=== PATIENT | male | born 1930 | race Caucasian/White ===

== ENCOUNTER → 2016-08-31 | Outpatient (CLI) | payer OTHER | LOC: BHFA 11:30 | PROVIDERS: ATTEND Internal Medicine Cardiovascular Disease | DX: I50.9 Heart failure, unspecified (principal) ==

== ENCOUNTER → 2017-02-09 | Outpatient (CLI) | payer OTHER | LOC: BHFA 10:00 | PROVIDERS: ATTEND Internal Medicine Cardiovascular Disease | DX: I50.9 Heart failure, unspecified (principal) ==

== ENCOUNTER 2017-05-31 11:04 | Inpatient (IN) | payer OTHER ==
--- NOTE | 2017-05-31 12:31 | EDPHY ---
H & P Stated Complaint: fall yesterday morning hit face/pain r shoulder Time Seen by Provider: 05/31/17 11:48 HPI/ROS: CHIEF COMPLAINT: Fall HISTORY OF PRESENT ILLNESS: This patient is an anticoagulated (Coumadin) 86 year old male arriving with his daughter complaining of right shoulder pain and multiple bruises secondary to a mechanical fall yesterday morning. He was bending over to pear picker a newspaper in his driveway, and fell forwards, striking his head, hands, and knees on the ground. His right shoulder is his primary complaint, and he states the discomfort feels similar to a past rotator cuff tear. He denies headache. His neck feels stiff on the right. His left hand hurts and he feels it is weak but that this may be due to swelling. He complains of stiffness in his right knee. His last INR was about 1 month ago, and he had an appointment today but presents here for evaluation instead. He denies chest pain, abdominal pain, difficulty breathing, or other associated symptoms. REVIEW OF SYSTEMS: A 10 point review of systems was performed and is negative with the exception of the elements mentioned in the history of present illness. - Personal History Current Tetanus/Diphtheria Vaccine: No - Medical/Surgical History PMH: 1. Pulmonary Embolism, DVTs (Coumadin) 2. Hernia repair 3. Right rotator cuff repair 4. Submandibular tumor excision 5. Hypertension. 6. Fractured pelvis 7. Left carpal tunnel repair Hx Asthma: No Hx Chronic Respiratory Disease: Yes Hx Diabetes: No Hx Cardiac Disease: No Hx Renal Disease: No Hx Cirrhosis: No Hx Alcoholism: No Hx HIV/AIDS: No Hx Splenectomy or Spleen Trauma: No Other PMH: PE, STENT IN RT LEG, PMR, HERNIA, right rotator cuff repair, carpal tunnel repair left hand, submandibular tumor excession 2012,fracture pelvis, 2011, hypertension - Social History Smoking Status: Former smoker Additional Social History: Lives independently. Daughter at bedside. Former smoker. - Physical Exam Exam: General Appearance: Alert, no distress Head: Left forehead and periorbital ecchymosis and swelling Eyes: No conjunctival erythema, PERRLA, EOMI ENT, Mouth: No hemotympanum, no oral trauma, no bony tenderness Neck: Non-tender, full range of motion without pain Respiratory: No chest wall tenderness, lungs clear bilaterally Cardiovascular: Regular rate and rhythm Abdomen: Abdomen is soft and non tender Skin: No lacerations, no abrasions Back: No midline T/L/S tenderness Extremities: Pelvis is stable and nontender; left hand ecchymosis and swelling , abrasion to base of thumb, abrasions to bilateral knees, pain with range of motion of left shoulder. Neurological: A&Ox3, normal motor function, normal sensory exam, cranial nerves intact Psychiatric: Mood and affect normal Constitutional: Initial Vital Signs Temperature (C) 36.5 C 05/31/17 11:10 Heart Rate 72 05/31/17 11:10 Respiratory Rate 18 05/31/17 11:10 Blood Pressure 105/69 05/31/17 11:10 O2 Sat (%) 96 05/31/17 11:10 O2 Delivery Mode Nasal Cannula O2 (L/minute) 2 Allergies/Adverse Reactions: No Known Allergies Allergy (Verified 05/31/17 11:08) Home Medications: Medication Instructions Recorded Loratadine [Claritin 10 mg] 10 mg PO DAILY 10/18/12 Omeprazole [Prilosec 20 mg] 20 mg PO DAILY 10/18/12 Fluorouracil [Efudex] 1 mariluz TP DAILY 09/30/15 Alendronate Sodium [Fosamax 70 MG 70 mg PO MOY@0700 #30 tab 10/04/15 (*)] Allopurinol [Allopurinol 100 MG 100 mg PO DAILY #30 tab 10/04/15 (*)] Cholecalciferol (Vitamin D3) 1,000 unit PO DAILY #30 tablet 10/04/15 [Vitamin D3] Finasteride [Proscar 5 MG (*)] 5 mg PO DAILY #30 tab 10/04/15 Losartan Potassium [Cozaar 50 mg 100 mg PO DAILY #30 tab 10/04/15 (*)] Simvastatin 10 mg PO HS #30 tablet 10/04/15 Triamterene/Hydrochlorothiazid 1 each PO DAILY #30 tablet 10/04/15 [Triamterene-Hctz 37.5-25 mg Tb] predniSONE 2.5 mg PO DAILY #30 tablet 10/04/15 Carvedilol 05/31/17 Warfarin Sodium 05/31/17 Medical Decision Making - Diagnostics Imaging Results: Imaging Impressions Hand X-Ray 05/31/17 11:29 Impression: 1. No acute osseous findings. 2. Multifocal degenerative change, most severe at the first carpometacarpal joint. Shoulder X-Ray 05/31/17 11:29 Impression: No acute osseous findings. Head CT 05/31/17 12:41 Impression: 1. Stable moderate atrophy. 2. No hemorrhage, mass effect, or definite acute peripheral infarct. 3. Stable moderate nonspecific hypodensities in the white matter of bilateral cerebral hemispheres. Differential diagnosis includes microvascular ischemic disease, post-infectious/post-inflammatory sequela, atypical demyelinating disease, or migraine-related sequela. Small white matter lacunar infarcts may also have this appearance. 4. Healed left posterior parietal depressed skull fracture. 5. Soft tissue swelling/contusion over the left orbit. If symptoms worsen, additional imaging may be necessary. Findings discussed with Varsha Jaime M.D. at 13:45 hour, 05/31/2017. ED Course/Re-evaluation: This patient presents after a mechanical fall with multiple areas of ecchymosis. X-ray of the hand and right shoulder revealed no evidence of fracture. CT scan of the brain reveals no acute injuries. He lives alone in his own home. The patient will need to be admitted to the hospital because of ongoing weakness and new inability to use his right upper extremity to help him get up from a seated position. He and his daughter do not feel that he is safe going home today. Differential Diagnosis: Differential diagnosis includes though it is not limited to fracture, intracranial hemorrhage, pneumothorax, hemothorax, intra-abdominal hemorrhage. - Data Points Laboratory Results: Laboratory Results 05/31/17 13:45 05/31/17 13:45 05/31/17 05/31/17 05/31/17 13:45 13:45 13:45 WBC 8.15 10^3/uL 10^3/uL (3.80-9.50) RBC 4.26 10^6/uL L 10^6/uL (4.40-6.38) Hgb 14.2 g/dL g/dL (13.7-17.5) Hct 42.1 % % (40.0-51.0) MCV 98.8 fL fL (81.5-99.8) MCH 33.3 pg pg (27.9-34.1) MCHC 33.7 g/dL g/dL (32.4-36.7) RDW 14.6 % % (11.5-15.2) Plt Count 125 10^3/uL L 10^3/uL (150-400) MPV 11.3 fL fL (8.7-11.7) Neut % (Auto) 84.2 % H % (39.3-74.2) Lymph % (Auto) 8.7 % L % (15.0-45.0) [place] % (Auto) 6.5 % % (4.5-13.0) Eos % (Auto) 0.0 % L % (0.6-7.6) Baso % (Auto) 0.1 % L % (0.3-1.7) Nucleat RBC Rel Count 0.0 % % (0.0-0.2) Absolute Neuts (auto) 6.86 10^3/uL H 10^3/uL (1.70-6.50) Absolute Lymphs (auto) 0.71 10^3/uL L 10^3/uL (1.00-3.00) Absolute Monos (auto) 0.53 10^3/uL 10^3/uL (0.30-0.80) Absolute Eos (auto) 0.00 10^3/uL L 10^3/uL (0.03-0.40) Absolute Basos (auto) 0.01 10^3/uL L 10^3/uL (0.02-0.10) Absolute Nucleated RBC 0.00 10^3/uL 10^3/uL (0-0.01) Immature Gran % 0.5 % % (0.0-1.1) Immature Gran # 0.04 10^3/uL 10^3/uL (0.00-0.10) PT 24.3 SEC H SEC (12.0-15.0) INR 2.16 H (0.83-1.16) Sodium 141 mEq/L mEq/L (134-144) Potassium 4.5 mEq/L mEq/L (3.5-5.2) Chloride 107 mEq/L mEq/L (97-110) Carbon Dioxide 26 mEq/l mEq/l (22-31) Anion Gap 8 mEq/L mEq/L (8-16) BUN 39 mg/dL H mg/dL (7-23) Creatinine 1.4 mg/dL H mg/dL (0.7-1.3) Estimated GFR 48 Glucose 97 mg/dL mg/dL (70-100) Calcium 8.7 mg/dL mg/dL (8.5-10.4) Urine Color Urine Appearance Urine pH Ur Specific [place] Urine Protein Urine Ketones Urine Blood Urine Nitrate Urine Bilirubin Urine Urobilinogen Ur Leukocyte Esterase Urine Glucose 05/31/17 13:10 WBC RBC Hgb Hct MCV MCH MCHC RDW Plt Count MPV Neut % (Auto) Lymph % (Auto) [place] % (Auto) Eos % (Auto) Baso % (Auto) Nucleat RBC Rel Count Absolute Neuts (auto) Absolute Lymphs (auto) Absolute Monos (auto) Absolute Eos (auto) Absolute Basos (auto) Absolute Nucleated RBC Immature Gran % Immature Gran # PT INR Sodium Potassium Chloride Carbon Dioxide Anion Gap BUN Creatinine Estimated GFR Glucose Calcium Urine Color YELLOW Urine Appearance CLEAR Urine pH 7.0 (5.0-7.5) Ur Specific [place] 1.018 (1.002-1.030) Urine Protein NEGATIVE (NEGATIVE) Urine Ketones NEGATIVE (NEGATIVE) Urine Blood NEGATIVE (NEGATIVE) Urine Nitrate NEGATIVE (NEGATIVE) Urine Bilirubin NEGATIVE (NEGATIVE) Urine Urobilinogen 4.0 EU H EU (0.2-1.0) Ur Leukocyte Esterase NEGATIVE (NEGATIVE) Urine Glucose NEGATIVE (NEGATIVE) Departure - Departure Disposition: [facility] Inpatient Acute Clinical Impression: Multiple contusions, Generalized weakness Right shoulder strain Qualifiers: Encounter type: initial encounter Qualified Code(s): S46.911A - Strain of unspecified muscle, fascia and tendon at shoulder and upper arm level, right arm , initial encounter Condition: Fair Referrals: Galileo Damico MD [Primary Care Provider] - As per Instructions Report Scribed for: Varsha Jaime Report Scribed by: Preeti Lakhani Date of Report: 05/31/17 Time of Report: 12:31 Physician Review and Approval Statement: 05/31/17 12:31 Portions of this note were transcribed by a medical center manager. I personally performed a history, physical exam, medical decision making, and confirmed accuracy of information the transcribed note.
[2017-05-31 13:49] LABS: COLOR YELLOW; LEUKOCYTE ESTERASE,URINE NEGATIVE (NEGATIVE); NITRITE,URINE NEGATIVE (NEGATIVE)
[2017-05-31 13:55] LABS: % IMMATURE GRANULYOCYTES 0.5 % (0.0-1.1); ABSOLUTE IMMATURE GRANULOCYTES 0.04 10^3/uL (0.00-0.10); ADD DIFF? NO; ADD MORPH? NO; ADD SCAN? NO; ATYPICAL LYMPHOCYTE FLAG 0 (0-99); FRAGMENT RBC FLAG 0 (0-99); HEMATOCRIT 42.1 % (40.0-51.0); HEMOGLOBIN 14.2 g/dL (13.7-17.5); LEFT SHIFT FLG 0 (0-99); LIPEMIA HEMOLYSIS FLAG 80 (0-99); MEAN CELL HEMOGLOBIN 33.3 pg (27.9-34.1); MEAN CELL HEMOGLOBIN CONCENTR. 33.7 g/dL (32.4-36.7); MEAN CELL VOLUME 98.8 fL (81.5-99.8); MEAN PLATELET VOLUME 11.3 fL (8.7-11.7); PLATELET CLUMPS FLAG 0 (0-99); PLATELET COUNT 125 10^3/uL (150-400); RED BLOOD CELL COUNT 4.26 10^6/uL (4.40-6.38); RED CELL DISTRIBUTION WIDTH 14.6 % (11.5-15.2)
[2017-05-31 14:16] LABS: ANION GAP 8 mEq/L (8-16); CALCIUM 8.7 mg/dL (8.5-10.4); CARBON DIOXIDE 26 mEq/l (22-31); CHLORIDE 107 mEq/L (97-110); CREATININE 1.4 mg/dL (0.7-1.3); GLOMERULAR FILTRATION RATE 48; GLUCOSE 97 mg/dL (70-100); INR 2.16 (0.83-1.16); POTASSIUM 4.5 mEq/L (3.5-5.2); PROTIME(PATIENT) 24.3 SEC (12.0-15.0); SODIUM 141 mEq/L (134-144)
[2017-05-31] MEDS ORDERED: ONDANSETRON 4 MG/2 ML VIAL IVP PRN (15:06)
[2017-05-31] MEDS ORDERED: ONDANSETRON DISINTEGRATING 4 MG TAB PO PRN (15:06)
[2017-05-31] MEDS ORDERED: oxyCODONE IR 5 MG TAB PO PRN (15:06)
--- NOTE | 2017-05-31 15:43 | GHP ---
[f rep st] HISTORY AND PHYSICAL DATE OF ADMISSION: 05/31/2017 CHIEF COMPLAINT: Fall. HISTORY OF PRESENT ILLNESS: An 86-year-old man on Coumadin, presents with a fall. 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 He did not lose con sciousness. He did not have an episode of syncope. He says that he merely lost his balance. He com plains of pain in his left eye, left hand as well as right knee. He has difficulty fully bending his right knee. He also hurt his right shoulder. He has had rotator cuff surgery on that shoulder abou t 15 years ago and it feels to him like he re-injured his rotator cuff. PAST MEDICAL/SURGICAL HISTORY: 1. Systolic CHF. Initial EF 32% up to 55% this January. 2. Apical thrombus, on anticoagulation. 3. Chronic kidney disease. 4. History of DVT and PE in 2001 as well as 2010. 5. Peripheral artery disease status post femoral stent. 6. Polymyalgia rheumatica. 7. Hypertension. 8. Gout. 9. COPD and chronic respiratory failure on 3 L of oxygen at baseline. MEDICATIONS: Please see medication reconciliation. ALLERGIES: No known drug allergies. SOCIAL HISTORY: He quit both drinking and smoking. He lives by himself in a house. His daughter ac companies him and is present during my interview. FAMILY HISTORY: Parents are . REVIEW OF SYSTEMS: A 10-point review of systems is conducted and is negative except per HPI. PHYSICAL EXAM: VITAL SIGNS: Blood pressure 103/49, heart rate 60, respiration rate 20, saturating 9 6% on room air. Temperature is 36.6. GENERAL: Mr. Ny is a pleasant man who is resting comforta jenna in mild distress. HEENT: Shows him to have an ecchymosis over his right eye. EXTREMITIES: Jeana ws left hand to have some ecchymosis on it. His right bilateral knees have scabs. His right knee is mildly swollen. He has difficulty bending it. He has significant pain with any range of motion of his right shoulder. CARDIOVASCULAR: Shows regular rate and rhythm. No murmurs, rubs, or gallops. PULMONARY: Lungs clear to auscultation bilaterally. ABDOMEN: Soft, nontender, nondistended. SKIN: Shows no rash. : Shows no Yoon. NEUROLOGIC: Shows him to be alert and oriented x3. He is mo ving all extremities. PSYCHIATRIC: Shows normal mood and affect. LABS: CBC shows platelets of a 125. INR is 2.16. Creatinine is 1.4, BUN 39, urinalysis negative. DATA: 1. I discussed this with Dr. Jaime. 2. I reviewed his head CT scan. This shows nothing acute intracranial. He does have some swelling contusion over the left orbit. 3. Shoulder x-ray shows nothing acute. 4. Hand x-ray shows degenerative change. 5. I reviewed his old chart including Dr. Jones' clinic note. IMPRESSION/PLAN: An 86-year-old male with a fall and subsequent injuries that prevent him from going home. 1. Fall: This sounds quite mechanical. We will have him work with physical therapy/occupational th cassie. Would not work up other causes of fall at this point. 2. Inability to care for himself: He is unable to pull himself up from seated given his shoulder in jury. Unable to really bear too much weight on his right knee. Needs to be hospitalized for his saf ety as I do not feel like he would be safe to return home at this point. As above, we will have him work with physical therapy/occupational therapy. 3. Right shoulder injury: Certainly may be rotator cuff. I told him that we would do adaptive physical educator apy/occupational therapy on this for now. Could have him see Dr. Bagley, whose is primarily a shou er surgeon as an outpatient. 4. Right knee injury: He does have a small effusion. We will check an x-ray to rule out a fracture . Have him work with physical therapy/occupational therapy. 5. Systolic congestive heart failure. Initial EF was 32% up to 55% on therapy, follows with Dr. Gene peterson. We will continue his home medications, will need them reconciled. This appears compensated. 6. Apical thrombus: He does have apical hypokinesis on his echo. We will continue his anticoagulat ion uninterrupted. 7. History of deep venous thrombosis/pulmonary embolus: He is currently appropriately anticoagulate d on Coumadin, continue this. 8. Chronic obstructive pulmonary disease with chronic respiratory failure on 3 L of oxygen: At his b aseline. 9. Polymyalgia rheumatica: Prednisone. 10. Peripheral artery disease status post femoral stent. 11. Hypertension. 12. History of gout. CODE STATUS: He would like to be full code full tube. /[id number]/MODL
[2017-05-31] MEDS: ACETAMINOPHEN 500 MG TAB PO SCH ×2 (15:46→21:07)
[2017-05-31] MEDS ORDERED: ACETAMINOPHEN 650 MG/20.3 ML UDCUP ONE (15:47)
[2017-05-31] MEDS: WARFARIN SODIUM 2.5 MG TAB PO SCH (17:35)
[2017-05-31] MEDS: CARVEDILOL 25 MG TAB PO SCH (18:22)
[2017-05-31] MEDS ORDERED: TORSEMIDE 20 MG TAB PO SCH (21:00)
[2017-05-31] MEDS: ATORVASTATIN CALCIUM 10 MG TAB PO SCH (21:07)
[2017-05-31] MEDS ORDERED: NS 250 ML IV ONE ×2 (21:42→23:16)
[2017-06-01 05:26] LABS: % IMMATURE GRANULYOCYTES 0.6 % (0.0-1.1); ABSOLUTE IMMATURE GRANULOCYTES 0.04 10^3/uL (0.00-0.10); ADD DIFF? NO; ADD MORPH? NO; ADD SCAN? NO; ATYPICAL LYMPHOCYTE FLAG 0 (0-99); FRAGMENT RBC FLAG 0 (0-99); HEMATOCRIT 37.3 % (40.0-51.0); HEMOGLOBIN 11.9 g/dL (13.7-17.5); LEFT SHIFT FLG 0 (0-99); LIPEMIA HEMOLYSIS FLAG 80 (0-99); MEAN CELL HEMOGLOBIN 32.9 pg (27.9-34.1); MEAN CELL HEMOGLOBIN CONCENTR. 31.9 g/dL (32.4-36.7); MEAN PLATELET VOLUME 11.6 fL (8.7-11.7); PLATELET CLUMPS FLAG 10 (0-99); PLATELET COUNT 118 10^3/uL (150-400); RED BLOOD CELL COUNT 3.62 10^6/uL (4.40-6.38); RED CELL DISTRIBUTION WIDTH 14.6 % (11.5-15.2)
[2017-06-01 05:47] LABS: ANION GAP 8 mEq/L (8-16); CALCIUM 8.4 mg/dL (8.5-10.4); CARBON DIOXIDE 28 mEq/l (22-31); CHLORIDE 104 mEq/L (97-110); CREATININE 1.7 mg/dL (0.7-1.3); GLOMERULAR FILTRATION RATE 38; GLUCOSE 98 mg/dL (70-100); POTASSIUM 4.3 mEq/L (3.5-5.2); SODIUM 140 mEq/L (134-144)
[2017-06-01] MEDS: CARVEDILOL 25 MG TAB PO SCH ×2 (08:02→18:28)
[2017-06-01] MEDS: ACETAMINOPHEN 500 MG TAB PO SCH ×4 (09:54→20:59)
[2017-06-01] MEDS: ALLOPURINOL 100 MG TAB PO SCH (09:55)
[2017-06-01] MEDS: predniSONE 1 MG TAB PO SCH ×2 (09:55→10:02)
[2017-06-01] MEDS: LOSARTAN POTASSIUM 50 MG TAB PO SCH (09:55)
[2017-06-01] MEDS: CETIRIZINE 10 MG TAB PO SCH (09:55)
[2017-06-01] MEDS: predniSONE 5 MG TAB PO SCH (09:55)
[2017-06-01] MEDS: PANTOPRAZOLE SODIUM 40 MG TAB PO SCH (09:55)
--- NOTE | 2017-06-01 10:33 | HOSPPROG ---
Hospitalist Progress Note Assessment/Plan: First encounter with this patient 86 yo male with MMP, admitted after mechanical fall with multiple bruising and significant generalized weakness. W/u thus far has shown no acute injuries including negative CT Brain, Shoulder, Knee. He is a high risk patient as he is on chronic AC. Has a large left orbital bruising that will need to be monitored closely. Cont with PT/OT. May need rehab pending progression with PT/OT. Requesting meds be changed, will change Torsamide not morning and change prednisone to 5 mg daily. #Mechanical Fall #Generalized Weakness #Chronic AC for Apical Thrombus and Hx of DVT/PE #Left orbital bruising #Left knee Effusion #Right shoulder pain, Hx of rotator cuff injury. Sees Dr. Bagley as an outpatient #Hx of Systolic CHF. Not in Exacerbation. Sees Dr. Vences #PAD, s/p femoral stent #Chronic resp failure and COPD at baseline of 3 L #HTN-essential, well controlled with current meds #chronic renal failure, stage III, at baseline #Polymyalgia Rheumatica, on chronic prednisone Subjective: Still weak. Left orbital swelling is decreasing. No SOB. Objective: Vital Signs Temp Pulse Resp BP Pulse Ox 36.4 C 60 34 H 124/63 H 96 06/01/17 08:00 06/01/17 08:02 06/01/17 08:00 06/01/17 09:55 06/01/17 08:00 Laboratory Results 06/01/17 04:28 06/01/17 04:28 05/31/17 06/01/17 06/02/17 05:59 05:59 05:59 Intake Total 300 Output Total 300 250 Balance -300 50 PT 24.3 SEC (12.0-15.0) H 05/31/17 13:45 INR 2.16 (0.83-1.16) H 05/31/17 13:45 - Physical Exam Constitutional: chronically ill appearing Eyes: PERRL, EOMI, other (Large swelling and bruising around left orbit) Ears, Nose, Mouth, Throat: moist mucous membranes, No hearing normal Cardiovascular: regular rate and rhythym Respiratory: no respiratory distress, no rales or rhonchi, clear to auscultation Gastrointestinal: normoactive bowel sounds, soft, non-tender abdomen Skin: warm Musculoskeletal: generalized weakness Neurologic: AAOx3 Psychiatric: interacting appropriately, not anxious, not encephalopathic ICD10 Worksheet Patient Problems: Problems Problem Status Onset Generalized weakness Acute Multiple contusions Acute Right shoulder strain Acute Cortical hemorrhage Acute Elevated INR Acute Epistaxis Acute Fracture of parietal bone of skull Acute Laceration Acute
--- NOTE | 2017-06-01 10:35 | WOCRNPDOC ---
WOCRN Advanced Assessment Note - Skin Integrity Problem, Advanced Assess Bilateral Knee Scab Dressing Type: Allevyn Life (left knee), Open to Air (right knee ) Dressing Description: Clean/Dry, Intact Exudate Amount: None Integumentary Issue Intervention: Visualized Under Dressing Wound Bed Constitution: Unstable Eschar (evolving eschar/small hematoma) Site Measurement - Head-to-Toe Length X Width X Depth (cm): Left: 1x1.8x0, Right : 0.5x1.8x0 Skin Integrity Problem Comment: Likely etiology is skin tear mixed with small hematoma (on right). Left is just a skin tear that has necrosed as it dried out. Treat with hydrogel and allevyn. Wound care will sign off.
--- NOTE | 2017-06-01 11:11 | PDMN ---
Medical Necessity Medical necessity: est los >2 mn for fall & injuries that prevent self care/ADLs ; shoulder injury prevents independent sit to stand, r/o RLE fx; unsafe for dc; requires PT/OT; comorbid CHF, apical thrombus/hx DVT/PE on AC, COPD, advanced age; per H&P & order 05/31/17
[2017-06-01] MEDS: TORSEMIDE 20 MG TAB PO SCH (11:42)
--- NOTE | 2017-06-01 15:44 | ASMTCASEMG ---
Living Arrangements What is your living Answers: Alone arrangement? Who do you live with? Type Of Residence What kind of residence do Answers: House you live in? Discharge Plan Comments Coordination Status Comments Notes: Pt is a 86 y/o man admitted for generalized weakness, right shoulder strain after a fall. OT/PT are recommending SNF. CM met w/ pt and daughter for dispo planning. Pt has been to [facility] and [facility] in the past and would like to make a referral to both facilities. Pt is requesting for a private bed at whichever SNF he ends up at. CM faxed over referrals to both facilities. [facility] was here this afternoon to do an on site and has accepted pt. [facility] can tentatively reserve a private room for Tuesday. Pt has accepted to go to [facility]. MIGUEL notified [facility] of pts acceptance. CM to follow. Date Signed: 06/01/2017 03:43 PM Electronically Signed By:EMERSON Burgos
[2017-06-01] MEDS: WARFARIN SODIUM 2.5 MG TAB PO SCH (16:16)
[2017-06-01] MEDS: ATORVASTATIN CALCIUM 10 MG TAB PO SCH (20:59)
[2017-06-02 05:06] LABS: % IMMATURE GRANULYOCYTES 0.5 % (0.0-1.1); ABSOLUTE IMMATURE GRANULOCYTES 0.03 10^3/uL (0.00-0.10); ADD DIFF? NO; ADD MORPH? NO; ADD SCAN? NO; ATYPICAL LYMPHOCYTE FLAG 0 (0-99); FRAGMENT RBC FLAG 0 (0-99); HEMATOCRIT 37.5 % (40.0-51.0); HEMOGLOBIN 12.1 g/dL (13.7-17.5); LEFT SHIFT FLG 0 (0-99); LIPEMIA HEMOLYSIS FLAG 80 (0-99); MEAN CELL HEMOGLOBIN 32.7 pg (27.9-34.1); MEAN CELL HEMOGLOBIN CONCENTR. 32.3 g/dL (32.4-36.7); MEAN CELL VOLUME 101.4 fL (81.5-99.8); MEAN PLATELET VOLUME 11.7 fL (8.7-11.7); PLATELET CLUMPS FLAG 0 (0-99); PLATELET COUNT 134 10^3/uL (150-400); RED CELL DISTRIBUTION WIDTH 14.4 % (11.5-15.2)
[2017-06-02 05:13] LABS: INR 2.18 (0.83-1.16); PROTIME(PATIENT) 24.4 SEC (12.0-15.0)
[2017-06-02 05:19] LABS: ANION GAP 7 mEq/L (8-16); CARBON DIOXIDE 26 mEq/l (22-31); CHLORIDE 106 mEq/L (97-110); CREATININE 1.5 mg/dL (0.7-1.3); GLOMERULAR FILTRATION RATE 44; GLUCOSE 105 mg/dL (70-100); POTASSIUM 4.2 mEq/L (3.5-5.2); SODIUM 139 mEq/L (134-144)
[2017-06-02] MEDS: PANTOPRAZOLE SODIUM 40 MG TAB PO SCH (08:33)
[2017-06-02] MEDS: CARVEDILOL 25 MG TAB PO SCH ×2 (08:33→18:34)
[2017-06-02] MEDS: CETIRIZINE 10 MG TAB PO SCH (08:34)
[2017-06-02] MEDS: LOSARTAN POTASSIUM 50 MG TAB PO SCH (08:34)
[2017-06-02] MEDS: ALLOPURINOL 100 MG TAB PO SCH (08:34)
[2017-06-02] MEDS: ACETAMINOPHEN 500 MG TAB PO SCH ×3 (08:34→21:52)
[2017-06-02] MEDS: predniSONE 5 MG TAB PO SCH (08:34)
[2017-06-02] MEDS: TORSEMIDE 20 MG TAB PO SCH (10:28)
--- NOTE | 2017-06-02 11:50 | HOSPPROG ---
Hospitalist Progress Note Assessment/Plan: 86 yo male with MMP, admitted after mechanical fall with multiple bruising and significant generalized weakness. W/u thus far has shown no acute injuries including negative CT Brain, Shoulder, Knee. He is a high risk patient as he is on chronic AC. Has a large left orbital bruising that will need to be monitored closely. Plan tomorrow is for the patient to go to [facility] for rehab. #Mechanical Fall #Generalized Weakness, needs rehab. will go to [facility] #Chronic AC for Apical Thrombus and Hx of DVT/PE, cont Coumadin. INR is therapeutic. #Left orbital bruising, overall improving #Left knee Effusion #Right shoulder pain, Hx of rotator cuff injury. Sees Dr. Baglye as an outpatient #Hx of Systolic CHF. Not in Exacerbation. Sees Dr. Vences #PAD, s/p femoral stent #Chronic resp failure and COPD at baseline of 3 L #HTN-essential, well controlled with current meds #chronic renal failure, stage III, at baseline #Polymyalgia Rheumatica, on chronic prednisone Subjective: worked with PT earlier today. No CP or SOB. No N/V. Objective: Vital Signs Temp Pulse Resp BP Pulse Ox 36.4 C 63 20 122/67 H 94 06/02/17 08:00 06/02/17 08:33 06/02/17 08:00 06/02/17 08:34 06/02/17 08:00 Laboratory Results 06/02/17 04:39 06/02/17 04:39 06/01/17 06/02/17 06/03/17 05:59 05:59 05:59 Intake Total 1740 Output Total 300 750 Balance -300 990 PT 24.4 SEC (12.0-15.0) H 06/02/17 04:39 INR 2.18 (0.83-1.16) H 06/02/17 04:39 - Physical Exam Constitutional: no apparent distress, appears nourished Eyes: PERRL, EOMI, other (large left orbit bruising) Ears, Nose, Mouth, Throat: moist mucous membranes, hearing normal Cardiovascular: regular rate and rhythym, No edema Respiratory: no respiratory distress, no rales or rhonchi, clear to auscultation Gastrointestinal: normoactive bowel sounds, soft, non-tender abdomen Skin: warm Neurologic: AAOx3 Psychiatric: interacting appropriately, not anxious, not encephalopathic ICD10 Worksheet Patient Problems: Problems Problem Status Onset Generalized weakness Acute Multiple contusions Acute Right shoulder strain Acute Cortical hemorrhage Acute Elevated INR Acute Epistaxis Acute Fracture of parietal bone of skull Acute Laceration Acute
[2017-06-02] MEDS ORDERED: FLU VACC QS 2017-18 (3YR+)/PF 0.5 ML SYR (FLUARIX QUAD) IM ONE (14:00)
[2017-06-02] MEDS ORDERED: WARFARIN SODIUM 5 MG TAB PO SCH (16:00)
[2017-06-02] MEDS: ATORVASTATIN CALCIUM 10 MG TAB PO SCH (21:52)
[2017-06-03 04:49] VITALS: O2SAT 97
[2017-06-03 07:32] VITALS: TEMP 97.6
[2017-06-03] MEDS: LOSARTAN POTASSIUM 50 MG TAB PO SCH (08:35)
[2017-06-03] MEDS: ACETAMINOPHEN 500 MG TAB PO SCH (08:35)
[2017-06-03] MEDS: CARVEDILOL 25 MG TAB PO SCH (08:36)
[2017-06-03] MEDS: predniSONE 5 MG TAB PO SCH (08:36)
[2017-06-03] MEDS: ALLOPURINOL 100 MG TAB PO SCH (08:36)
[2017-06-03] MEDS: CETIRIZINE 10 MG TAB PO SCH (08:36)
[2017-06-03] MEDS: PANTOPRAZOLE SODIUM 40 MG TAB PO SCH (08:36)
--- NOTE | 2017-06-03 10:32 | PDDCSUM ---
Discharge Summary Discharge Summary: 86 yo male with MMP, admitted after mechanical fall with multiple bruising and significant generalized weakness. MRI of the right shoulder is c/w prior rotator cuff surgery and multiple tendon tears, unclear chronicity, to include distal supraspinatus tear, infraspinatus tear, and distal subscapularis tear. His daughter has arranged for f/u with an orthopedic group in one week for further mgmt and evaluation. Otherwise w/u did not show other acute injuries including negative CT Brain, and Knee XR.. He has chronic AC on coumadin and on admission had a large left orbital hematoma which has receded well. No new visual deficits. He was evaluated by PT/OT who recommend inpatient rehab at [facility]. He is ready for discharge at this time. He has not required pain medicine today No changes to his home medication regimen was performed cont on warfarin, no changed. INR is at target. Discharge Diagnosis: #Mechanical Fall #Generalized Weakness, needs rehab. will go to [facility] #Chronic AC for Apical Thrombus and Hx of DVT/PE, cont Coumadin. INR is therapeutic. #Left orbital bruising, overall improving #Left knee Effusion #Right shoulder pain, Hx of rotator cuff injury. Sees Dr. Bagley as an outpatient #Hx of Systolic CHF. Not in Exacerbation. Sees Dr. Vences #PAD, s/p femoral stent #Chronic resp failure and COPD at baseline of 3 L #HTN-essential, well controlled with current meds #chronic renal failure, stage III, at baseline #Polymyalgia Rheumatica, on chronic prednisone EXAM: NAD AAOX3 LARGE LEFT ORBIT ERYTHEMA, IMPROVING RRR CTAB S/NT/ND MEDS: SEE MED REC TOTAL TIME SPENT ON DISCHARGE IS 35 MINUTES
--- NOTE | 2017-06-03 10:34 | PDIAF ---
- Diagnosis Diagnosis: REHAB: pt admitted for mechanical fall with generalized weakness Code Status: Full Code - Medication Management Discharge Medications: Medications to Continue on Transfer Loratadine [Claritin 10 mg] 10 mg PO DAILY 10/18/12 [Last Taken 05/31/17] Omeprazole [Prilosec 20 mg] 20 mg PO DAILY 10/18/12 [Last Taken 05/31/17] Allopurinol [Allopurinol 100 MG (*)] 100 mg PO DAILY #30 tab 10/04/15 [Last Taken 05/31/17] Carvedilol [Coreg (*)] 25 mg PO BIDMEAL 05/31/17 [Last Taken 05/31/17] Cholecalciferol (Vitamin D3) [Vitamin D3] 5,000 unit PO DAILY 05/31/17 [Last Taken 05/31/17] Losartan Potassium [Cozaar 50 mg (*)] 50 mg PO DAILY 05/31/17 [Last Taken ] Simvastatin [Zocor] 20 mg PO HS 05/31/17 [Last Taken 05/30/17] Torsemide [Demadex] 40 mg PO HS 05/31/17 [Last Taken 05/30/17] Warfarin Sodium [Coumadin 2.5MG (*)] 2.5 mg PO [id number] 05/31/17 [Last Taken 05/31/17] Warfarin Sodium [Coumadin] 5 mg PO TH 05/31/17 [Last Taken 05/26/17] predniSONE [Veronica] 6 mg PO DAILY 05/31/17 [Last Taken 05/31/17] Discharge Medications: Refer to the Discharge Home Medication list for PRN reason. - Orders Services needed: Physical Therapy, Occupational Therapy Diet Recommendation: cardiac -low fat low salt Diet Texture: Regular Texture Diet - Labs/Radiology PT/INR Date: 06/04/17 - Follow Up Care Current Providers and Referrals: Vasiliy Villarreal MD [Medical Doctor] - Galileo Damico MD [Primary Care Provider] - As per Instructions
[2017-06-03 12:06] VITALS: BP 107/62; PULSE 66; RESP 16
[2017-06-03] MEDS: TORSEMIDE 20 MG TAB PO SCH (12:11)
--- NOTE | 2017-06-03 13:00 | ASMTCMCOM ---
CM Note CM Note Notes: D/w RN, final orders faxed. Mckinley at notified and pickle pumper will be at 3:30 via [employer] to call report and daughter Charline notified. Date Signed: 06/03/2017 12:59 PM Electronically Signed By:Emelina Irving RN
[2017-06-03] MEDS: WARFARIN SODIUM 2.5 MG TAB PO SCH (15:33)
--- NOTE | 2017-06-03 17:22 | ASDISCHSUM ---
Discharge Information Plan Status:SNF Medically Cleared to Leave: Discharge Date:06/03/2017 03:40 PM D/C Disposition:[facility] Facility ADT D/C Disposition:Other Rehab, Not [place] Projected Discharge Date:06/03/2017 11:00 AM Transportation at D/C:Wheelchair Van Discharge Delay Reason: Follow-Up Date:06/03/2017 11:00 AM Discharge Slot: Final Diagnosis: Placement Information Referral Type:*Prison/SNF Ref[facility] ID:[facility]-[id number] Provider Name:Kareen Duran [address] Phone Number: Address 2: Fax Number: City:[place] Selection Factors: State:[place] Patient Contact Information Contact Name:MARTIN Relationship:Daughter Address: City:[place] Alternate Phone: State/Zip Code:[place] Email: Financial Information Financial Class: Primary Plan Desc:MEDICARE INPATIENT Primary Plan Number:[id number] Secondary Plan Desc:STANDARD LIFE Secondary Plan Number:[id number] Assessment Information [facility] Initial CM Assessment Living Arrangements What is your living Answers: Alone arrangement? Who do you live with? Type Of Residence What kind of residence do Answers: House you live in? Discharge Plan Comments Coordination Status Comments Notes: Pt is a 86 y/o man admitted for generalized weakness, right shoulder strain after a fall. OT/PT are recommending SNF. CM met w/ pt and daughter for dispo planning. Pt has been to [facility] and [facility] in the past and would like to make a referral to both facilities. Pt is requesting for a private bed at whichever SNF he ends up at. CM faxed over referrals to both facilities. [facility] was here this afternoon to do an on site and has accepted pt. [facility] can tentatively reserve a private room for Tuesday. Pt has accepted to go to [facility]. notified [facility] of pts acceptance. CM to follow. Date Signed: 06/01/2017 03:43 PM Electronically Signed By:EMERSON Burgos [facility] CM Progress Note CM Note CM Note Notes: D/w RN, final orders faxed. [place] at notified and pick up and delivery driver will be at 3:30 via [employer] to call report and daughter Charline notified. Date Signed: 06/03/2017 12:59 PM Electronically Signed By:Emelina Irving RN Intervention Information Intervention Type:*IM-Signed Date of Service:06/03/2017 02:37 PM Patient Type:Inpatient Staff Member:Krysten Ayala Hours: Discipline: Severity: Comment:
== END 2017-06-03 15:40 | DRG 565 ==
LOC: F3E 16:14
PROVIDERS: ADMIT Student in an Organized Health Care Education/Training Program; ATTEND Family Medicine
DX: M25.462 Effusion, left knee (principal); S49.81XA Other specified injuries of right shoulder and upper arm, initial encounter; S60.222A Contusion of left hand, initial encounter; S05.12XA Contusion of eyeball and orbital tissues, left eye, initial encounter; R53.1 Weakness; S81.801A Unspecified open wound, right lower leg, initial encounter; S81.802A Unspecified open wound, left lower leg, initial encounter; W18.39XA Other fall on same level, initial encounter; Y93.89 Activity, other specified; Y92.014 Private driveway to single-family (private) house as the place of occurrence of the external cause; Y99.8 Other external cause status; I51.3 Intracardiac thrombosis, not elsewhere classified; Z86.711 Personal history of pulmonary embolism; Z86.718 Personal history of other venous thrombosis and embolism; Z79.01 Long term (current) use of anticoagulants; I50.22 Chronic systolic (congestive) heart failure; I70.209 Unspecified atherosclerosis of native arteries of extremities, unspecified extremity; Z95.820 Peripheral vascular angioplasty status with implants and grafts; J44.9 Chronic obstructive pulmonary disease, unspecified; Z99.81 Dependence on supplemental oxygen; N18.3 Chronic kidney disease, stage 3 (moderate); M35.3 Polymyalgia rheumatica; Z79.52 Long term (current) use of systemic steroids; Z87.891 Personal history of nicotine dependence; Z23 Encounter for immunization
CPT/HCPCS: 92523-GN; 97116-GP; 97161-GP; 97166-GO; 97530-GO; G0008; G8978-GP-CJ; G8979-GP-CI; G8980-GP-CJ; G8987-GO-CJ; G8988-GO-CI; G8989-GO-CJ; G9165-GN-CH; G9166-GN-CH; G9167-GN-CH

== ENCOUNTER → 2017-10-24 | Outpatient (CLI) | payer OTHER | LOC: FIMAGING 14:21 | PROVIDERS: ATTEND Internal Medicine Rheumatology | DX: Z13.820 Encounter for screening for osteoporosis (principal); M85.89 Other specified disorders of bone density and structure, multiple sites; Z79.899 Other long term (current) drug therapy ==

== ENCOUNTER → 2018-01-09 | Outpatient (CLI) | payer OTHER | LOC: BHFA 14:00 | PROVIDERS: ATTEND Internal Medicine Cardiovascular Disease | DX: I50.9 Heart failure, unspecified (principal) ==